=== PATIENT | female | born 1950 ===

== ENCOUNTER 2019-11-25 08:43 | Outpatient (CLI) | payer MEDICARE, OTHER, MEDICAID, SELFPAY ==
--- NOTE | 2019-11-25 14:59 | ONC FU_ITS ---
Dr. Telles follow up note Patient: Chantell Santos Unit #: [id number]: 1950 Dicatated By: Melody Telles M.D.Date of Visit:Nov 25, 2019 Onc Med Follow-up/Prog Note History of Present Illness: Mrs. Chantell Santos, is a 68-year-old female with history of abnormal mammogram which showed 5 mm lesion in sub-areolar area which was confirmed with a left breast ultrasound patient underwent ultrasound guided needle biopsy on 09/08/2018 which confirmed infiltrating ductal carcinoma grade 2, ER/DC positive, HER-2/milagros negative and Ki-67 3%. 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 Patient denies any bony pains Started having periods at age 13, first at age 23, no history of hormonal supplement except recent use of hormonal vaginal cream No known family history of breast cancer. Underwent left breast lumpectomy on 10/16/2018 which shows fibrocystic changes, intraductal papilloma, complex sclerosing lesion, usual ductal hyperplasia, no malignancy seen or cytologic atypia seen Margins clear one sentinel lymph node was examined showed no metastatic disease. Case was discussed with Dr. 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 Patient was referred to breast cancer clinic at [facility] for clinical trial for chemoprevention and second opinion. And she was recommended evista 60 mg by mouth daily for 5 years as chemoprevention.Started on evista 60 mg by mouth daily for 5 years along with vitamin D and calcium supplement on 01/07/2019 On 12/17/2018 she underwent total vaginal hysterectomy with right oophorectomy for uterine leiomyeloma Came for follow-up, denies any specific complaints, except some time sensation around left lumpectomy scar but no discharge, no local tenderness, no overlying skin changes but patient has tendency to create keloid on the surgical scar no fever chills, no nausea or vomiting, no diarrhea constipation.Tolerating evista well otherwise. Medications: amLODIPine Besylate 1 Tablet (of 5 mg) Oral daily, Carvedilol 1 Tablet (of 3.125 mg) Oral b.i.d., Ferrous Sulfate 1 Tablet (of 325 (65 fe) mg) Oral daily, hydroCHLOROthiazide 1 Tablet (of 25 mg) Oral daily, Lisinopril 1 Tablet (of 20 mg) Oral daily, Raloxifene HCl 1 Tablet (of 60 mg) Oral daily Allergies: Codeine Sulfate and Latex. Review of Systems: Constitutional - Appetite is fair and weight is stable. No fever, chills, hot flashes, or night sweats. Energy level is fair, ENMT - Positive for sinus congestion/drainage. No mouth sores. No sore throat or difficulty swallowing, Hematologic/Lymphatic - No abnormal bruising or bleeding, Respiratory - No shortness of breath. No cough. No pleuritic pain or hemoptysis, Cardiovascular - No angina pain. Positive for palpitations, Gastrointestinal - No nausea or vomiting. No heartburn or acid reflux. No diarrhea or constipation. No blood in the stool or black stools, Genitourinary (F) - No dysuria or hematuria. No urinary frequency. No urgency or incontinence, Musculoskeletal - Positive for joint pain, Neurologic - No headache or dizziness. No numbness/paresthesias or other focal neurologic symptoms, Psychiatric - Pt denies depression and anxiety. No insomnia. Vital Signs: Performed on Nov 25, 2019 08:56 Height - 62.00 in Weight - 159.0 lbs (HIGH) BSA - 1.73 sq.m BMI - 29.08 Temperature - 99.0 F (HIGH) Pulse - 65 /min Respiration - 18 /min BP - 120/74 mm(hg) O2 Sat - 99 % Pain - 0 Performance Status: 0 - Fully active, able to carry on all predisease activities without restrictions. (ECOG) Physical Examination: Respiratory - Lungs are clear, Cardiovascular - Regular rate and rhythm of heart, Breasts - Left breast exam shows no mass palpable no nipple discharge no overlying skin changes on left postlumpectomy scar, no lymphadenopathy, Extremities - No visible edema or rash. Lab/Imaging: Most recent lab results are not available for this patient. Impression: Papilloma with atypical ductal hyperplasia, earlier impression was Infiltrating ductal carcinoma per ultrasound guided needle biopsy of left breast done on 09/08/2018 final pathology report showed grade 2, tumor infiltrating 80% of submitted biopsy tissue, estrogen receptor 87%, progesterone receptor 88%, HER-2/milagros negative, Ki-67 3%, favorable. As per discussion with Dr. Atkins pathologist, initial biopsy was reviewed and consulted with colleagues and diagnoses was revised to papilloma with atypical ductal hyperplasia Mammogram done on 08/20/2018 showed at 4:00, hypoechoic well circumscribed mass 5 x 4 mm at 1 cm from the nipple. There is an additional smaller hypoechoic mass which may be a complex cyst measuring 3 x 2 mm at 4:30 Underwent left breast lumpectomy and needle localization on 10/16/2018 Showed fibrocystic changes with intraductal papilloma, complex sclerosing lesion (complex radial scar) usual ductal hyperplasia, no evidence of malignancy or significant cytologic atypia identified. X [place] lymph node was examined showed no metastatic disease. With initial diagnosis of infiltrating ductal carcinoma she was started on Arimidex 1 mg by mouth daily which she took for couple of weeks but later on diagnosis was reviewed advised to papilloma with atypical ductal hyperplasia at that time she was referred to breast cancer clinic at [facility] for clinical trial of for chemoprevention and she was offered evista 60 mg by mouth daily for 5 years along with follow-up mammogram on regular basis. She was given prescription for evista 60 mg by mouth daily on 01/07/2019 and patient was started in 2 weeks. Along with vitamin D and calcium supplements. Plan: Discussed with patient and was informed that paresthesia is common around surgical scar especially in breast or in axilla. and if there is no improvement then we will reevaluate her otherwise continue with Evista and also consider follow-up mammogram and then she will return to clinic in 6 months for follow-up. Signed By: Melody Telles M.D. <<Signature on File>>
== END 2019-11-25 08:44 | disposition home or self-care (01) ==
LOC: ONCMED 08:50
PROVIDERS: PCP Family Medicine; Visit Provider Internal Medicine Hematology & Oncology
DX: D24.2 Benign neoplasm of left breast (principal); Z79.810 Long term (current) use of selective estrogen receptor modulators (SERMs)
CPT/HCPCS: 99214

== ENCOUNTER 2019-12-30 11:56 | Outpatient (CLI) | payer MEDICARE, OTHER, MEDICAID, SELFPAY ==
--- NOTE | 2019-12-30 12:04 | MM_ITS ---
WS: [id number] BILATERAL SCREENING DIGITAL MAMMOGRAM WITH CAD HISTORY: PAPILLOMA W/ATYPICAL DUCTAL HYPERPLASIA COMPARISON: 10/21/2018 and 07/21/2018 Bilateral CC and MLO views submitted. Computer aided detection analyzed. Breast composition: There are scattered areas of fibroglandular density. No suspicious masses, microc alcifications or architectural distortion. MM/[id number] IMPRESSION: BI-RADS: 1-Negative FOLLOW UP: 1 Year Follow-up
== END 2019-12-30 11:57 | disposition home or self-care (01) ==
LOC: RADSHAW 12:03
PROVIDERS: PCP Family Medicine; Visit Provider Internal Medicine Hematology & Oncology
DX: Z85.3 Personal history of malignant neoplasm of breast (principal)
CPT/HCPCS: 77066

== ENCOUNTER 2020-07-11 12:36 | Outpatient (CLI) | payer MEDICARE, OTHER, MEDICAID, SELFPAY ==
--- NOTE | 2020-07-11 17:04 | ONC FU_ITS ---
Dr. Telles follow up note Patient: Chantell Santos Unit #: [id number]: 1950 Dicatated By: Melody Telles M.D.Date of Visit:Jul 11, 2020 Onc Med Follow-up/Prog Note History of Present Illness: Mrs. Chantell Santos, is a 68-year-old female with history of abnormal mammogram which showed 5 mm lesion in sub-areolar area which was confirmed with a left breast ultrasound patient underwent ultrasound guided needle biopsy on 09/08/2018 which confirmed infiltrating ductal carcinoma grade 2, ER/[place] positive, HER-2/milagros negative and Ki-67 3%. 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 Patient denies any bony pains Started having periods at age 13, first at age 23, no history of hormonal supplement except recent use of hormonal vaginal cream No known family history of breast cancer. Underwent left breast lumpectomy on 10/16/2018 which shows fibrocystic changes, intraductal papilloma, complex sclerosing lesion, usual ductal hyperplasia, no malignancy seen or cytologic atypia seen Margins clear one sentinel lymph node was examined showed no metastatic disease. Case was discussed with Dr. 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 Patient was referred to breast cancer clinic at [facility] for clinical trial for chemoprevention and second opinion. And she was recommended evista 60 mg by mouth daily for 5 years as chemoprevention.Started on evista 60 mg by mouth daily for 5 years along with vitamin D and calcium supplement on 01/07/2019 On 12/17/2018 she underwent total vaginal hysterectomy with right oophorectomy for uterine leiomyeloma Came for follow-up, denies any specific complaint except generalized weakness and fatigue as per patient around 2019 eusebio she started having persistent fever which was not responding to antibiotics so went to [facility] and she was diagnosed with COVID-19 infection, as per patient she stayed in the hospital for 1 day and then sent home in quarantine. Patient continued to improve her taste came back but still feeling weak and tired although improving. Otherwise denies any fever chills denies any nausea or vomiting denies any diarrhea constipation. Denies any shortness of breath Medications: amLODIPine Besylate 1 Tablet (of 5 mg) Oral daily, Carvedilol 1 Tablet (of 3.125 mg) Oral b.i.d., Daily Value Multivitamin 1 Tablet Oral daily, Ferrous Sulfate 1 Tablet (of 325 (65 fe) mg) Oral daily, hydroCHLOROthiazide 1 Tablet (of 25 mg) Oral daily, Lisinopril 1 Tablet (of 20 mg) Oral daily, Raloxifene HCl 1 Tablet (of 60 mg) Oral daily Allergies: Codeine Sulfate and Latex. Review of Systems: Review of Systems is not available for this patient. Vital Signs: Performed on Jul 11, 2020 13:26 Height - 62.00 in Weight - 154.2 lbs (LOW) BSA - 1.71 sq.m BMI - 28.20 Temperature - 98.8 F Pulse - 65 /min Respiration - 18 /min BP - 147/70 mm(hg) (HIGH) O2 Sat - 98 % Pain - 0 Fatigue - 8 Performance Status: 1 - No physically strenuous activity, but ambulatory and able to carry out light or sedentary work (e.g. office work, light house work). (ECOG) Physical Examination: Respiratory - Lungs are clear to auscultation, Cardiovascular - Regular rate and rhythm of heart, Gastrointestinal - Soft, bowel sounds present, Extremities - No visible edema no rash. Lab/Imaging: Most recent lab results are not available for this patient. Impression: Papilloma with atypical ductal hyperplasia, earlier impression was Infiltrating ductal carcinoma per ultrasound guided needle biopsy of left breast done on 09/08/2018 final pathology report showed grade 2, tumor infiltrating 80% of submitted biopsy tissue, estrogen receptor 87%, progesterone receptor 88%, HER-2/milagros negative, Ki-67 3%, favorable. As per discussion with Dr. Atkins pathologist, initial biopsy was reviewed and consulted with colleagues and diagnoses was revised to papilloma with atypical ductal hyperplasia Mammogram done on 08/20/2018 showed at 4:00, hypoechoic well circumscribed mass 5 x 4 mm at 1 cm from the nipple. There is an additional smaller hypoechoic mass which may be a complex cyst measuring 3 x 2 mm at 4:30 Underwent left breast lumpectomy and needle localization on 10/16/2018 Showed fibrocystic changes with intraductal papilloma, complex sclerosing lesion (complex radial scar) usual ductal hyperplasia, no evidence of malignancy or significant cytologic atypia identified. X [place] lymph node was examined showed no metastatic disease. With initial diagnosis of infiltrating ductal carcinoma she was started on Arimidex 1 mg by mouth daily which she took for couple of weeks but later on diagnosis was reviewed advised to papilloma with atypical ductal hyperplasia at that time she was referred to breast cancer clinic at [facility] for clinical trial of for chemoprevention and she was offered evista 60 mg by mouth daily for 5 years along with follow-up mammogram on regular basis. She was given prescription for evista 60 mg by mouth daily on 01/07/2019 and patient was started in 2 weeks. Along with vitamin D and calcium supplements. Plan: Discussed with patient regarding her question and concern, patient is tolerating Evista well and was recently diagnosed with COVID-19 infection when she presented to [facility] with nausea vomiting near syncopal attack severe headaches and as per patient she stayed in hospital for 1 day and then was discharged home on quarantine and all other symptoms resolved but continued to feel weak and tired and now improving. And being followed by PMD, Patient is tolerating Evista well we will continue with same and return to clinic in 6 months with mammogram as mammogram done on December 30, 2019 shows benign findings Signed By: Melody Telles M.D. <<Signature on File>>
== END 2020-07-11 12:37 | disposition home or self-care (01) ==
LOC: ONCMED 12:38
PROVIDERS: PCP Family Medicine; Visit Provider Internal Medicine Hematology & Oncology
DX: N60.92 Unspecified benign mammary dysplasia of left breast (principal); Z90.12 Acquired absence of left breast and nipple; E55.9 Vitamin D deficiency, unspecified; E83.52 Hypercalcemia; Z79.899 Other long term (current) drug therapy
CPT/HCPCS: 99214

== ENCOUNTER 2020-12-30 10:42 | Outpatient (CLI) | payer MEDICARE, OTHER, MEDICAID, SELFPAY ==
--- NOTE | 2020-12-30 10:45 | MM_ITS ---
WS: [id number] BILATERAL DIGITAL DIAGNOSTIC MAMMOGRAM MAMMOGRAPHY WITH CAD CLINICAL INFORMATION: PAPILLOMA W/ATYPICAL DUCTAL HYPERPLASIA HISTORY: COMPARISON: December 30, 2019 TECHNIQUE: Bilateral CC, MLO, and ML views. FINDINGS: Scattered fibroglandular densities bilaterally. Incidental punctate calcifications. No suspicious focal mass, asymmetry, calcifications, or architectural distortion. No evidence of bruno gnancy. MM/[id number] IMPRESSION: BI-RADS: 2-Benign FOLLOW UP: 1 Year Follow-up Recommend return to annual diagnostic mammography.
== END 2020-12-30 10:43 | disposition home or self-care (01) ==
LOC: RADSHAW 10:44
PROVIDERS: PCP Family Medicine; Visit Provider Internal Medicine Hematology & Oncology
DX: D24.2 Benign neoplasm of left breast (principal); N62 Hypertrophy of breast
CPT/HCPCS: 77066

== ENCOUNTER 2021-03-10 08:02 | Outpatient (CLI) | payer MEDICARE, OTHER, MEDICAID, SELFPAY ==
--- NOTE | 2021-03-10 08:42 | ONC FU_ITS ---
Dr. Telles follow up note Patient: Chantell Santos Unit #: [id number]: [id number] Dicatated By: Melody Telles M.D.Date of Visit:Mar 10, 2021 Onc Med Follow-up/Prog Note History of Present Illness: Mrs. Chantell Santos, is a 70-year-old female with history of abnormal mammogram which showed 5 mm lesion in sub-areolar area which was confirmed with a left breast ultrasound patient underwent ultrasound guided needle biopsy on 09/08/2018 which confirmed infiltrating ductal carcinoma grade 2, ER/[place] positive, HER-2/milagros negative and Ki-67 3%. 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 Patient denies any bony pains Started having periods at age 13, first at age 23, no history of hormonal supplement except recent use of hormonal vaginal cream No known family history of breast cancer. Underwent left breast lumpectomy on 10/16/2018 which shows fibrocystic changes, intraductal papilloma, complex sclerosing lesion, usual ductal hyperplasia, no malignancy seen or cytologic atypia seen Margins clear one sentinel lymph node was examined showed no metastatic disease. Case was discussed with Dr. 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 Patient was referred to breast cancer clinic at [facility] for clinical trial for chemoprevention and second opinion. And she was recommended evista 60 mg by mouth daily for 5 years as chemoprevention.Started on evista 60 mg by mouth daily for 5 years along with vitamin D and calcium supplement on 01/07/2019 On 12/17/2018 she underwent total vaginal hysterectomy with right oophorectomy for uterine leiomyeloma Follow-up mammogram done on December 30, 2020 shows BI-RADS 2, benign Came for follow-up, denies any specific complaints, no fever chills, no nausea or vomiting, no diarrhea or constipation, no nipple discharge, no breast fullness or mass, no headaches. Occasional hot flashes otherwise tolerating Evista well. Medications: amLODIPine Besylate 1 Tablet (of 5 mg) Oral daily, Carvedilol 1 Tablet (of 3.125 mg) Oral b.i.d., Daily Value Multivitamin 1 Tablet Oral daily, Ferrous Sulfate 1 Tablet (of 325 (65 fe) mg) Oral daily, hydroCHLOROthiazide 1 Tablet (of 25 mg) Oral daily, Lisinopril 1 Tablet (of 20 mg) Oral daily, Raloxifene HCl 1 Tablet (of 60 mg) Oral daily Allergies: Codeine Sulfate and Latex. Review of Systems: Review of Systems is not available for this patient. Vital Signs: Vitals are not available for this patient. Performance Status: 0 - Fully active, able to carry on all predisease activities without restrictions. (ECOG) Physical Examination: Respiratory - Lungs are clear to auscultation, Cardiovascular - Regular rate and rhythm of heart, Gastrointestinal - Soft, bowel sounds present, Extremities - No visible edema. Lab/Imaging: Most recent lab results are not available for this patient. Impression: Papilloma with atypical ductal hyperplasia, earlier impression was Infiltrating ductal carcinoma per ultrasound guided needle biopsy of left breast done on 09/08/2018 final pathology report showed grade 2, tumor infiltrating 80% of submitted biopsy tissue, estrogen receptor 87%, progesterone receptor 88%, HER-2/milagros negative, Ki-67 3%, favorable. As per discussion with Dr. Atkins pathologist, initial biopsy was reviewed and consulted with colleagues and diagnoses was revised to papilloma with atypical ductal hyperplasia Mammogram done on 08/20/2018 showed at 4:00, hypoechoic well circumscribed mass 5 x 4 mm at 1 cm from the nipple. There is an additional smaller hypoechoic mass which may be a complex cyst measuring 3 x 2 mm at 4:30 Underwent left breast lumpectomy and needle localization on 10/16/2018 Showed fibrocystic changes with intraductal papilloma, complex sclerosing lesion (complex radial scar) usual ductal hyperplasia, no evidence of malignancy or significant cytologic atypia identified. X [place] lymph node was examined showed no metastatic disease. With initial diagnosis of infiltrating ductal carcinoma she was started on Arimidex 1 mg by mouth daily which she took for couple of weeks but later on diagnosis was reviewed advised to papilloma with atypical ductal hyperplasia at that time she was referred to breast cancer clinic at [facility] for clinical trial of for chemoprevention and she was offered evista 60 mg by mouth daily for 5 years along with follow-up mammogram on regular basis. She was given prescription for evista 60 mg by mouth daily on 01/07/2019 and patient was started in 2 weeks. Along with vitamin D and calcium supplements. Plan: Discussed with patient regarding her mammogram finding which shows no abnormalities other BI-RADS 2, benign findings. Overall patient is doing well with no new signs symptoms except off and on hot flashes due to Evista otherwise tolerating well, will continue with same and she will return to clinic in 6 months, will obtain her lab work-up from her PMDs office. Signed By: Melody Telles M.D. <<Signature on File>>
== END 2021-03-10 08:03 | disposition home or self-care (01) ==
PROVIDERS: PCP Family Medicine; Visit Provider Internal Medicine Hematology & Oncology
DX: N60.92 Unspecified benign mammary dysplasia of left breast (principal); E83.51 Hypocalcemia
CPT/HCPCS: 99214

== ENCOUNTER 2021-09-08 08:14 | Outpatient (CLI) | payer MEDICARE, OTHER, SELFPAY ==
--- NOTE | 2021-09-08 09:21 | ONC FU_ITS ---
Dr. Telles follow up note Patient: Chantell Santos Unit #: [id number]: [id number] Dicatated By: Melody Telles M.D.Date of Visit:Sep 08, 2021 Onc Med Follow-up/Prog Note History of Present Illness: Mrs. Chantell Santos, is a 70-year-old female with history of abnormal mammogram which showed 5 mm lesion in sub-areolar area which was confirmed with a left breast ultrasound patient underwent ultrasound guided needle biopsy on 09/08/2018 which confirmed infiltrating ductal carcinoma grade 2, ER/ID positive, HER-2/milagros negative and Ki-67 3%. 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 Patient denies any bony pains Started having periods at age 13, first at age 23, no history of hormonal supplement except recent use of hormonal vaginal cream No known family history of breast cancer. Underwent left breast lumpectomy on 10/16/2018 which shows fibrocystic changes, intraductal papilloma, complex sclerosing lesion, usual ductal hyperplasia, no malignancy seen or cytologic atypia seen Margins clear one sentinel lymph node was examined showed no metastatic disease. Case was discussed with Dr. 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 Patient was referred to breast cancer clinic at [facility] for clinical trial for chemoprevention and second opinion. And she was recommended evista 60 mg by mouth daily for 5 years as chemoprevention.Started on evista 60 mg by mouth daily for 5 years along with vitamin D and calcium supplement on 01/07/2019 On 12/17/2018 she underwent total vaginal hysterectomy with right oophorectomy for uterine leiomyeloma Follow-up mammogram done on December 30, 2020 shows BI-RADS 2, benign Came for follow-up, denies any specific complaints, no fever chills, no nausea or vomiting, no diarrhea constipation, no melena or hematochezia, no hemoptysis or hematemesis, no new bony pains, no nipple discharge, Tolerating Evista well Medications: amLODIPine Besylate 1 Tablet (of 5 mg) Oral daily, Carvedilol 1 Tablet (of 3.125 mg) Oral b.i.d., CeleBREX 1 Capsule (of 200 mg) Oral daily, Daily Value Multivitamin 1 Tablet Oral daily, Ferrous Sulfate 1 Tablet (of 325 (65 fe) mg) Oral daily, hydroCHLOROthiazide 1 Tablet (of 25 mg) Oral daily, Lisinopril 1 Tablet (of 20 mg) Oral daily, Raloxifene HCl 1 Tablet (of 60 mg) Oral daily Allergies: Codeine Sulfate and Latex. Review of Systems: Review of Systems is not available for this patient. Vital Signs: Performed on Sep 08, 2021 08:42 Height - 62.00 in Weight - 163.2 lbs (HIGH) BSA - 1.75 sq.m BMI - 29.85 Temperature - 98.0 F (LOW) Pulse - 68 /min Respiration - 16 /min BP - 142/80 mm(hg) (HIGH) O2 Sat - 97 % Pain - 0 Fatigue - 5 Performance Status: 0 - Fully active, able to carry on all predisease activities without restrictions. (ECOG) Physical Examination: Respiratory - Lungs are clear to auscultation, Cardiovascular - Regular rate and rhythm of heart, Gastrointestinal - Soft, bowel sounds present, Extremities - No visible edema. Lab/Imaging: Most recent lab results are not available for this patient. Impression: Papilloma with atypical ductal hyperplasia, earlier impression was Infiltrating ductal carcinoma per ultrasound guided needle biopsy of left breast done on 09/08/2018 final pathology report showed grade 2, tumor infiltrating 80% of submitted biopsy tissue, estrogen receptor 87%, progesterone receptor 88%, HER-2/milagros negative, Ki-67 3%, favorable. As per discussion with Dr. Atkins pathologist, initial biopsy was reviewed and consulted with colleagues and diagnoses was revised to papilloma with atypical ductal hyperplasia Mammogram done on 08/20/2018 showed at 4:00, hypoechoic well circumscribed mass 5 x 4 mm at 1 cm from the nipple. There is an additional smaller hypoechoic mass which may be a complex cyst measuring 3 x 2 mm at 4:30 Underwent left breast lumpectomy and needle localization on 10/16/2018 Showed fibrocystic changes with intraductal papilloma, complex sclerosing lesion (complex radial scar) usual ductal hyperplasia, no evidence of malignancy or significant cytologic atypia identified. X [place] lymph node was examined showed no metastatic disease. With initial diagnosis of infiltrating ductal carcinoma she was started on Arimidex 1 mg by mouth daily which she took for couple of weeks but later on diagnosis was reviewed advised to papilloma with atypical ductal hyperplasia at that time she was referred to breast cancer clinic at [facility] for clinical trial of for chemoprevention and she was offered evista 60 mg by mouth daily for 5 years along with follow-up mammogram on regular basis. She was given prescription for evista 60 mg by mouth daily on 01/07/2019 and patient was started in 2 weeks. Along with vitamin D and calcium supplements. Plan: Discussed with patient regarding her question concern, patient is tolerating Evista as a chemoprevention therapy well. Patient is due for her yearly mammogram in December 2021. Denies any nipple discharge but she has history of inverted nipple. Denies any mass in her breast, at this point, we will continue with Evista and she will return to clinic in 6 months with follow-up mammogram. Signed By: Melody Telles M.D. <<Signature on File>>
== END 2021-09-08 08:15 | disposition home or self-care (01) ==
PROVIDERS: PCP Family Medicine; Visit Provider Internal Medicine Hematology & Oncology
DX: N60.92 Unspecified benign mammary dysplasia of left breast (principal); E55.9 Vitamin D deficiency, unspecified; Z79.818 Long term (current) use of other agents affecting estrogen receptors and estrogen levels; Z79.899 Other long term (current) drug therapy
CPT/HCPCS: 99215

== ENCOUNTER 2022-01-01 08:59 | Outpatient (CLI) | payer MEDICARE, MEDICAID, OTHER, SELFPAY ==
--- NOTE | 2022-01-01 09:08 | MM_ITS ---
WS: [id number] DIAGNOSTIC BILATERAL DIGITAL BREAST TOMOSYNTHESIS MAMMOGRAPHY WITH CAD HISTORY: BENIGN NEOPLASM LT Breast; atypical HYPERPLASIA COMPARISON: 12/30/2020, 12/30/2019 TECHNIQUE: Bilateral craniocaudad, mediolateral oblique, and mediolateral views are submitted with to mosayse and SM. Computer aided detection utilized. Breast composition: There are scattered areas of fibroglandular density. 3 minimal soft tissue distor tion involving the LEFT subareolar region from prior surgery. No interval change in appearance of the breasts over multiple prior studies. No suspicious mass or distortion. MM/[place] [id number] IMPRESSION: BI-RADS: 2-Benign FOLLOW UP: 1 Year Follow-up
== END 2022-01-01 09:00 | disposition home or self-care (01) ==
LOC: RAD 09:02
PROVIDERS: PCP Family Medicine; Visit Provider Internal Medicine Hematology & Oncology
DX: D24.2 Benign neoplasm of left breast (principal)
CPT/HCPCS: 77062

== ENCOUNTER 2022-05-25 10:55 | Oncology outpatient (recurring) (ONCR) | payer MEDICARE, MEDICAID, OTHER, SELFPAY | END 2022-06-09 23:59 | disposition home or self-care (01) | PROVIDERS: PCP Family Medicine; Visit Provider Internal Medicine Hematology & Oncology | DX: N60.82 Other benign mammary dysplasias of left breast (principal); Z17.0 Estrogen receptor positive status [ER+]; Z90.710 Acquired absence of both cervix and uterus; Z90.721 Acquired absence of ovaries, unilateral; Z79.818 Long term (current) use of other agents affecting estrogen receptors and estrogen levels; Z79.899 Other long term (current) drug therapy | CPT/HCPCS: 99214 ==

== ENCOUNTER → 2022-10-24 08:55 | Outpatient (BNVA) | payer MEDICARE, OTHER, MEDICAID, SELFPAY | PROVIDERS: PCP Family Medicine; Referring Provider Family Medicine; Visit Provider Specialist | DX: M17.11 Unilateral primary osteoarthritis, right knee (principal); S83.91XA Sprain of unspecified site of right knee, initial encounter; X58.XXXA Exposure to other specified factors, initial encounter; M25.561 Pain in right knee | CPT/HCPCS: 73560; 73565; 80503; 89050 ==

== ENCOUNTER 2022-10-24 11:23 | Outpatient (CLI) | payer MEDICARE, OTHER, MEDICAID, SELFPAY | END 2022-10-24 11:24 | disposition home or self-care (01) | LOC: SPT 11:24 | PROVIDERS: PCP Family Medicine; Visit Provider Specialist | DX: Z46.89 Encounter for fitting and adjustment of other specified devices (principal); M25.561 Pain in right knee; M17.11 Unilateral primary osteoarthritis, right knee; S83.91XA Sprain of unspecified site of right knee, initial encounter; X58.XXXA Exposure to other specified factors, initial encounter | CPT/HCPCS: 20610; 97760; 99204; J1100; J2795; J3301; L1812 ==

== ENCOUNTER 2022-11-07 06:00 | Outpatient (RCR) | payer MEDICARE, OTHER, MEDICAID, SELFPAY | END 2022-11-07 23:59 | disposition home or self-care (01) | LOC: MPT 06:00 | PROVIDERS: PCP Family Medicine; Visit Provider Specialist | DX: M25.562 Pain in left knee (principal) | CPT/HCPCS: 97110; 97161 ==

== ENCOUNTER 2022-11-08 06:00 | Outpatient (RCR) | payer MEDICARE, OTHER, MEDICAID, SELFPAY | END 2022-12-07 23:59 | disposition home or self-care (01) | LOC: MPT 06:00 | PROVIDERS: PCP Family Medicine; Visit Provider Specialist | DX: M25.561 Pain in right knee (principal) | CPT/HCPCS: 97110; G0283 ==

== ENCOUNTER → 2022-12-05 09:26 | Outpatient (BNVA) | payer MEDICARE, OTHER, MEDICAID, SELFPAY | PROVIDERS: PCP Family Medicine; Visit Provider Specialist | DX: M17.11 Unilateral primary osteoarthritis, right knee (principal) | CPT/HCPCS: 99213 ==

== ENCOUNTER 2022-12-08 06:00 | Outpatient (RCR) | payer MEDICARE, OTHER, MEDICAID, SELFPAY | END 2023-01-07 23:59 | disposition home or self-care (01) | LOC: MPT 06:00 | PROVIDERS: PCP Family Medicine; Visit Provider Specialist | DX: M25.561 Pain in right knee (principal) | CPT/HCPCS: 97110; G0283 ==

== ENCOUNTER 2023-01-08 06:00 | Outpatient (RCR) | payer MEDICARE, OTHER, MEDICAID, SELFPAY | END 2023-02-07 23:59 | disposition home or self-care (01) | LOC: MPT 06:00 | PROVIDERS: PCP Family Medicine; Visit Provider Specialist | DX: M25.561 Pain in right knee (principal) | CPT/HCPCS: 97110; 97140; 97530; G0283 ==

== ENCOUNTER 2023-01-16 11:35 | Outpatient (CLI) | payer MEDICARE, OTHER, MEDICAID, SELFPAY ==
--- NOTE | 2023-01-16 11:43 | MM_ITS ---
WS: [id number] BILATERAL 3D TOMOSYNTHESIS DIGITAL SCREENING MAMMOGRAPHY WITH CAD CLINICAL INFORMATION: Follow up HISTORY: Screening mammogram. No current complaints. COMPARISON: 2021 TECHNIQUE: Bilateral CC and MLO views. FINDINGS: Scattered fibroglandular densities bilaterally. No suspicious focal mass, asymmetry, calcifications, or architectural distortion. No evidence of malignancy. Incidental punctate calcifications. IMPRESSION: MM/[place] [id number] BI-RADS: 2-Benign FOLLOW UP: 1 Year Follow-up Recommend return to annual screening mammography.
== END 2023-01-16 11:36 | disposition home or self-care (01) ==
PROVIDERS: PCP Family Medicine; Visit Provider Internal Medicine Hematology & Oncology
DX: Z85.3 Personal history of malignant neoplasm of breast (principal); M17.11 Unilateral primary osteoarthritis, right knee; I10 Essential (primary) hypertension; Z90.710 Acquired absence of both cervix and uterus
CPT/HCPCS: 20610; 73560; 73565; 77062; 99214; G0279; J7326

== ENCOUNTER 2023-01-23 11:24 | Oncology outpatient (recurring) (ONCR) | payer MEDICARE, OTHER, MEDICAID, SELFPAY ==
[2023-01-23 11:30] VITALS: BP 169/83; PULSE 74; RESP 18; TEMP 36.4; O2SAT 97
[2023-01-23 11:50] LABS: Basophils % 0.2 %; Eosinophils # 0.2 10^3/uL (0.0-0.8); Eosinophils % 3.5 %; Hematocrit 35.4 % (37.0-47.0); Hemoglobin 11.2 g/dL (11.5-15.3); Lymphocytes # 1.5 10^3/uL (0.8-4.8); Lymphocytes % 25.6 %; Mean Corpuscular HGB Conc 31.6 g/dL (30.0-36.0); Mean Corpuscular Hemoglobin 29.2 pg (28.0-34.0); Mean Corpuscular Volume 92.2 fl (81-99); Monocytes # 0.3 10^3/uL (0.2-0.9); Monocytes % 5.5 %; Neutrophils # 3.87 10^3/uL (1.8-7.7); Neutrophils % 64.9 %; Nucleated Red Blood Cells % 0 %; Platelet Count 311 10^3/cmm (130-400); Red Blood Count 3.84 10^6/uL (4.1-5.3); Red Cell Distribution Width 13.1 % (12.1-15.1)
[2023-01-23 12:04] LABS: Alanine Aminotransferase 24 U/L (0-33); Albumin Level 4.6 g/dL (3.5-5.2); Alkaline Phosphatase 92 U/L (35-105); Anion Gap 15.4 (5-19); Aspartate Amino Transferase 25 U/L (0-32); Blood Urea Nitrogen 23 mg/dL (8-23); Calcium 9.5 mg/dL (8.5-10.5); Carbon Dioxide 26 mmol/L (22-29); Chloride 105 mmol/L (98-107); Globulin 2.9 g/dL (1.3-4.6); Glucose 116 mg/dL (65-115); Osmolality Calculated 299 mOsm/kg (285-295); Potassium 4.4 mmol/L (3.5-5.1); Sodium 142 mmol/L (136-145); Total Bilirubin 0.5 mg/dL (0.15-1.2); Total Protein 7.5 g/dL (6.6-8.7)
== END 2023-02-07 23:59 | disposition home or self-care (01) ==
PROVIDERS: Internal Medicine Medical Oncology; PCP Family Medicine; Visit Provider Internal Medicine Hematology & Oncology
DX: C50.812 Malignant neoplasm of overlapping sites of left female breast (principal); Z17.0 Estrogen receptor positive status [ER+]; Z90.710 Acquired absence of both cervix and uterus; Z90.722 Acquired absence of ovaries, bilateral; I10 Essential (primary) hypertension; Z79.818 Long term (current) use of other agents affecting estrogen receptors and estrogen levels; Z79.899 Other long term (current) drug therapy
CPT/HCPCS: 36415; 80053; 85025; 99213

== ENCOUNTER → 2023-01-29 15:41 | Outpatient (BNVA) | payer MEDICARE, OTHER, MEDICAID, SELFPAY | PROVIDERS: PCP Family Medicine; Visit Provider Nurse Practitioner Family | DX: L21.8 Other seborrheic dermatitis (principal); L81.8 Other specified disorders of pigmentation; D22.5 Melanocytic nevi of trunk; Z12.83 Encounter for screening for malignant neoplasm of skin | CPT/HCPCS: 99214 ==

== ENCOUNTER 2023-02-08 06:00 | Outpatient (RCR) | payer MEDICARE, OTHER, MEDICAID, SELFPAY | END 2023-02-12 23:59 | disposition home or self-care (01) | LOC: MPT 06:00 | PROVIDERS: PCP Family Medicine; Visit Provider Specialist | DX: M25.561 Pain in right knee (principal) | CPT/HCPCS: 97110; G0283 ==

== ENCOUNTER → 2023-07-22 15:05 | Outpatient (BNVA) | payer MEDICARE, OTHER, MEDICAID, SELFPAY | PROVIDERS: PCP Family Medicine; Visit Provider Specialist | DX: M17.11 Unilateral primary osteoarthritis, right knee | CPT/HCPCS: 20610; 73560; 73565; 99213 ==

== ENCOUNTER → 2023-07-31 13:48 | Outpatient (BNVA) | payer MEDICARE, MEDICAID, SELFPAY | PROVIDERS: PCP Family Medicine; Visit Provider Specialist | DX: M17.12 Unilateral primary osteoarthritis, left knee | CPT/HCPCS: 20610; 73560; 73565; 99213; J7326 ==

== ENCOUNTER 2024-01-29 12:05 | Oncology outpatient (recurring) (ONCR) | payer MEDICARE, OTHER, SELFPAY ==
[2024-01-29 12:50] LABS: Basophils % 0.4 %; Eosinophils # 0.3 10^3/uL (0.0-0.8); Hematocrit 34.7 % (36-47); Lymphocytes # 1.5 10^3/uL (0.8-4.8); Lymphocytes % 30.2 %; Mean Corpuscular HGB Conc 32.3 g/dL (30-55); Mean Corpuscular Hemoglobin 28.5 pg (27-33); Mean Corpuscular Volume 88.3 fl (85-98); Mean Platelet Volume 9.1 fL (7.4-10.4); Monocytes # 0.4 10^3/uL (0.2-0.9); Monocytes % 8.2 %; Neutrophils # 2.82 10^3/uL (1.8-7.7); Nucleated Red Blood Cells % 0 %; Platelet Count 275 10^3/cmm (157-399); Red Blood Count 3.93 10^6/uL (3.85-5.65); White Blood Count 5.03 10^3/uL (3.29-11.43)
[2024-01-29 13:15] LABS: Alanine Aminotransferase 14 U/L (0-33); Albumin Level 4.3 g/dL (3.5-5.2); Alkaline Phosphatase 93 U/L (35-105); Anion Gap 18.1 (5-19); Aspartate Amino Transferase 16 U/L (0-32); Blood Urea Nitrogen 34 mg/dL (8-23); Calcium 9.3 mg/dL (8.5-10.5); Carbon Dioxide 22 mmol/L (22-29); Chloride 105 mmol/L (98-107); Glucose 111 mg/dL (65-115); Osmolality Calculated 300 mOsm/kg (285-295); Potassium 4.1 mmol/L (3.5-5.1); Sodium 141 mmol/L (136-145); Total Bilirubin 0.4 mg/dL (0.15-1.2); Total Protein 7.3 g/dL (6.6-8.7)
== END 2024-02-13 09:21 | disposition home or self-care (01) ==
PROVIDERS: Internal Medicine Medical Oncology; PCP Family Medicine; Visit Provider Internal Medicine Hematology & Oncology
DX: N60.92 Unspecified benign mammary dysplasia of left breast (principal); I10 Essential (primary) hypertension
CPT/HCPCS: 36415; 80053; 85025; 99214

== ENCOUNTER 2024-03-10 06:00 | Outpatient (RCR) | payer MEDICARE, OTHER, SELFPAY | END 2024-04-09 23:59 | disposition home or self-care (01) | LOC: MPT 06:00 | PROVIDERS: Visit Provider Physician Assistant Surgical | DX: Z47.1 Aftercare following joint replacement surgery (principal); Z96.651 Presence of right artificial knee joint | CPT/HCPCS: 97110; 97161; G0283 ==

== ENCOUNTER 2024-03-23 13:30 | Outpatient (CLI) | payer MEDICARE, OTHER, SELFPAY ==
--- NOTE | 2024-03-23 13:30 | MM_ITS ---
WS: [id number] BILATERAL 3D TOMOSYNTHESIS DIGITAL DIAGNOSTIC MAMMOGRAPHY WITH CAD CLINICAL INFORMATION: atypical ductal hyperplasia left breast HISTORY: Diagnostic mammogram. No current complaints. COMPARISON: 2022 TECHNIQUE: Bilateral CC and MLO views. FINDINGS: Scattered fibroglandular densities bilaterally. No suspicious focal mass, asymmetry, calcifications, or architectural distortion. No evidence of malignancy. Incidental punctate calcifications. Vascular calcifications. MM/MM diag tomosynthesis [id number] IMPRESSION: DENSITY: There are scattered areas of fibroglandular density. BI-RADS: 2 - Benign. FOLLOW UP: 1 Year Follow-up Recommend return to annual diagnostic mammography.
== END 2024-03-23 13:44 | disposition home or self-care (01) ==
PROVIDERS: Visit Provider Nurse Practitioner Family
DX: N60.92 Unspecified benign mammary dysplasia of left breast (principal); R92.323 Mammographic fibroglandular density, bilateral breasts; R92.1 Mammographic calcification found on diagnostic imaging of breast
CPT/HCPCS: 77062; G0279

== ENCOUNTER → 2024-04-06 14:30 | Outpatient (BNVA) | payer MEDICARE, OTHER, SELFPAY | PROVIDERS: Visit Provider Nurse Practitioner Family | DX: L21.8 Other seborrheic dermatitis (principal); L81.8 Other specified disorders of pigmentation; D22.5 Melanocytic nevi of trunk; Z12.83 Encounter for screening for malignant neoplasm of skin | CPT/HCPCS: 99214 ==

== ENCOUNTER 2024-04-10 06:00 | Outpatient (RCR) | payer MEDICARE, OTHER, SELFPAY | END 2024-05-09 23:59 | disposition home or self-care (01) | LOC: MPT 06:00 | PROVIDERS: Visit Provider Physician Assistant Surgical | DX: Z47.1 Aftercare following joint replacement surgery (principal); Z96.651 Presence of right artificial knee joint | CPT/HCPCS: 97110; G0283 ==

== ENCOUNTER 2024-05-10 06:00 | Outpatient (RCR) | payer MEDICARE, OTHER, SELFPAY | END 2024-06-09 23:59 | disposition home or self-care (01) | LOC: MPT 06:00 | PROVIDERS: Visit Provider Physician Assistant Surgical | DX: Z47.1 Aftercare following joint replacement surgery (principal); Z96.651 Presence of right artificial knee joint | CPT/HCPCS: 97110; G0283 ==

== ENCOUNTER 2024-06-10 06:00 | Outpatient (RCR) | payer MEDICARE, OTHER, SELFPAY | END 2024-06-17 23:59 | disposition home or self-care (01) | LOC: MPT 06:00 | PROVIDERS: Visit Provider Physician Assistant Surgical | DX: Z47.1 Aftercare following joint replacement surgery (principal); Z96.651 Presence of right artificial knee joint | CPT/HCPCS: 97110; G0283 ==

== ENCOUNTER 2025-01-21 12:25 | Oncology outpatient (recurring) (ONCR) | payer MEDICARE, OTHER, SELFPAY ==
[2025-01-21 12:59] LABS: Hematocrit 36.4 % (36-47); Hemoglobin 11.60 g/dL (11.27-16.99); Mean Corpuscular HGB Conc 31.9 g/dL (30-55); Mean Corpuscular Hemoglobin 27.2 pg (27-33); Mean Corpuscular Volume 85.2 fl (85-98); Nucleated Red Blood Cells % 0 %; Platelet Count 256 10^3/cmm (157-399); Red Blood Count 4.27 10^6/uL (3.85-5.65); White Blood Count 4.81 10^3/uL (3.29-11.43)
[2025-01-21 13:15] LABS: Alanine Aminotransferase 10 U/L (0-33); Albumin Level 4.3 g/dL (3.5-5.2); Alkaline Phosphatase 96 U/L (35-105); Anion Gap 16.0 (5-19); Aspartate Amino Transferase 14 U/L (0-32); Blood Urea Nitrogen 16 mg/dL (8-23); Calcium 9.7 mg/dL (8.5-10.5); Carbon Dioxide 24 mmol/L (22-29); Chloride 104 mmol/L (98-107); Creatinine Clr Calc Pharmacy 47.3125; Globulin 3.0 g/dL (1.3-4.6); Glucose 102 mg/dL (65-115); Osmolality Calculated 291 mOsm/kg (285-295); Potassium 4.0 mmol/L (3.5-5.1); Sodium 140 mmol/L (136-145); Total Protein 7.3 g/dL (6.6-8.7)
== END 2025-02-07 23:59 | disposition home or self-care (01) ==
PROVIDERS: Nurse Practitioner Family; Visit Provider Nurse Practitioner Family
DX: N60.92 Unspecified benign mammary dysplasia of left breast (principal); N64.59 Other signs and symptoms in breast; Z90.710 Acquired absence of both cervix and uterus; Z90.721 Acquired absence of ovaries, unilateral
CPT/HCPCS: 36415; 80053; 85025; 99213

== ENCOUNTER 2025-01-27 14:47 | Outpatient (CLI) | payer MEDICARE, OTHER, SELFPAY ==
--- NOTE | 2025-01-27 15:00 | XR_ITS ---
WS: [id number] DEXA (DUAL ENERGY X-RAY ABSORPTIOMETRY) Bone mineral density was performed using a [employer]IC[employer]TV machine. HISTORY: surveillance COMPARISON: 03/13/2017 Lumbar spine BMD (L1-L4): 1.202 g/cm2 T score: 0.2 Z score: 1.7 Total hip BMD: Left: 1.187 g/cm2. T score: 1.4 Z score: 2.9 Right: 1.239 g/cm2. T score: 1.8 Z score: 3.3 10 year probability of a major osteoporotic fracture is 4.4%. Compared to the prior study from 03/13/2017. Lumbar spine bone mineral density has increased by 0.8%. Bilateral hips bone mineral density has decreased by 7.0%. XR/XR DEXA axial skeleton* [id number] IMPRESSION: NORMAL BONE MINERAL DENSITY based upon the WHO classification for females. No significant increase in bone mineral density in the lumbar spine. Significant decrease of bone mineral density in the hips since the prior study.
== END 2025-01-27 14:48 | disposition home or self-care (01) ==
LOC: RAD 14:48
PROVIDERS: Visit Provider Nurse Practitioner Family
DX: Z13.820 Encounter for screening for osteoporosis (principal); Z78.0 Asymptomatic menopausal state; N60.92 Unspecified benign mammary dysplasia of left breast
CPT/HCPCS: 77080

== ENCOUNTER 2025-04-06 12:41 | Outpatient (CLI) | payer MEDICARE, OTHER, SELFPAY ==
--- NOTE | 2025-04-06 12:45 | MM_ITS ---
WS: [id number] DIAGNOSTIC BILATERAL DIGITAL BREAST TOMOSYNTHESIS MAMMOGRAPHY WITH CAD HISTORY: surveillance COMPARISON: 03/23/2024, 01/16/2023, 12/30/2020 TECHNIQUE: Bilateral craniocaudad, mediolateral oblique, and mediolateral views are submitted with tomosynthesis and SM. Computer aided detection utilized. Breast composition: There are scattered areas of fibroglandular density. No interval change in appearance of either breast. Small benign calcifications are scattered. No mass or architectural distortion. MM/MM diag tomosynthesis [id number] IMPRESSION: BI-RADS: 2 - Benign. FOLLOW UP: 1 Year Follow-up
== END 2025-04-06 12:42 | disposition home or self-care (01) ==
LOC: RAD 12:42
PROVIDERS: Visit Provider Nurse Practitioner Family
DX: L40.8 Other psoriasis (principal); L28.0 Lichen simplex chronicus; D22.61 Melanocytic nevi of right upper limb, including shoulder; N60.92 Unspecified benign mammary dysplasia of left breast
CPT/HCPCS: 77062; 99214; G0279

== ENCOUNTER 2025-04-08 10:29 | Outpatient (CLI) | payer MEDICARE, OTHER, SELFPAY ==
--- NOTE | 2025-04-08 10:33 | CT_ITS ---
WS: [id number] CT ABDOMEN AND PELVIS WITH AND WITHOUT CONTRAST HISTORY: RIGHT FLANK PAIN INTO LOWER ABDOMEN TECHNIQUE: Unenhanced 5 mm axial imaging first performed through the abdomen. Post contrast imaging through the abdomen and pelvis. Oral contrast has not been provided. Sagittal and coronal reformats are submitted. All CT scans at [facility] use at least one of these dose optimization techniques: automated exposure control; mA and/or kV adjustment per patient size (includes targeted exams where dose is matched to clinical indication); or iterative reconstruction. CONTRAST: Omnipaque 350; 95 mL IV. DLP: 992.23 mGy.cm COMPARISON: 09/08/2010 Lung bases are clear. Benign granuloma LEFT lower lobe. Mild cardiomegaly. Small hiatal hernia. Prior cholecystectomy. Liver and spleen are negative. Normal portal vein. No adrenal mass. Normal common bile duct and normal pancreas. Kidneys are normal size. No renal stones or obstruction. No perinephric stranding. No renal mass. Mild atherosclerosis aorta. Mesenteric arteries are normally enhancing. No ascites or adenopathy. GI tract is not obstructed. The appendix is not definitely identified. No secondary findings of appendicitis. Increasing diverticular burden throughout the sigmoid colon. No obstructive pattern. No acute diverticulitis. No free fluid or adenopathy in the pelvis. Urinary bladder is not distended. Status post hysterectomy. No destructive bone lesions. Mild facet joint arthritis at L4-5 and L5-S1. CT/CT abdomen pelvis wo/w [id number] IMPRESSION: 1. No renal obstruction or calcifications. 2. No acute inflammatory changes in the abdomen or pelvis. 3. Sigmoid diverticulosis without acute diverticulitis. 4. Prior cholecystectomy. 5. Prior hysterectomy. 6. The appendix is not identified. No secondary findings of appendicitis.
[2025-04-08] MEDS: iohexol 350 mg/mL 500 mL Btl (per mL) IV (11:10)
== END 2025-04-08 10:30 | disposition home or self-care (01) ==
LOC: RAD 10:30
PROVIDERS: Visit Provider Family Medicine
DX: R10.30 Lower abdominal pain, unspecified (principal); K57.30 Diverticulosis of large intestine without perforation or abscess without bleeding; Z90.49 Acquired absence of other specified parts of digestive tract; Z90.710 Acquired absence of both cervix and uterus; Z90.89 Acquired absence of other organs; M47.896 Other spondylosis, lumbar region
CPT/HCPCS: 74178